=== PATIENT | female | born 1980 | race Caucasian/White ===

== ENCOUNTER 2018-04-12 16:58 | Emergency (ER) | payer BC ==
[~2018-04-12] VITALS: Ht 157.5 cm; Wt 136.1 kg
--- NOTE | ~2018-04-12 | EKG ---
[address] [address] ELECTROCARDIOGRAM REPORT Name: JG MALDONADO Holli Room #: [facility]#: [id number] Admission: 04/12/18 Attend Phys: Discharge: 04/12/18 Date of : 82 Report #: [id number] THIS REPORT FOR: //name// [facility] ED Test Date: 2018-04-12 Test Time: 17:24:14 Pat Name: JG MALDONADO Department: Room: Gender: F Database Coordinator: domenico mueller : 1980 Requested By: Tori Alan Order Number: [id number] MD: Cameron Morrell Measurements Intervals [place] Rate: 87 P: 77 RI: 155 QRS: 10 QRSD: 85 T: 33 QT: 363 QTc: 437 Interpretive Statements Sinus rhythm Normal tracing No previous ECG available for comparison Electronically Signed On 04-13-2018 8:41:27 FILTROSE CRUSHER by Cameron Morrell [email or web address] <ELECTRONICALLY SIGNED> By: Cameron Morrell MD, MERGED WITH [facility] 04/13/18 0841 1724 1724 Cameron Morrell MD, FACC /EPI
[~2018-04-12 16:58] MED LIST: IBUPROFEN 600600 M1; IRON325; TUCKS1 EAC1
[2018-04-12 17:36] LABS: ABSOLUTE NEUTROPHILS 6.5 thou/uL (1.4-8.2); BASOPHILS 0.4 % (0.0-2.0); EOSINOPHILS 0.5 % (0.0-3.0); HEMATOCRIT 41.7 % (37.0-47.0); HEMOGLOBIN 13.8 gm/dL (12.0-15.0); LYMPHOCYTES 19.2 % (24.0-44.0); MCH 26.4 pg (26.0-34.0); MCHC 33.1 g/dL (28.0-37.0); MCV 79.9 fL (80.0-100.0); MONOCYTES 6.1 % (1.0-8.0); PLATELET COUNT 336 thou/uL (150-400); POLYS 73.8 % (36.0-66.0); RBC 5.22 mil/uL (4.20-5.00); RDW 17.4 % (10.5-14.5); WBC 8.7 thou/uL (4.0-11.0)
[2018-04-12 17:43] LABS: ANION GAP 12 mmol/L (7-16); BUN 10 mg/dL (7-18); CALCIUM 9.2 mg/dL (8.5-10.1); CHLORIDE 103 mmol/L (98-107); CO2 22 mmol/L (21-32); CREATININE 0.8 mg/dL (0.6-1.0); GLUCOSE 101 mg/dL (74-106); POTASSIUM 3.7 mmol/L (3.5-5.1); SODIUM 137 mmol/L (136-145)
[2018-04-12 17:52] LABS: TROPONIN-I <0.06 ng/mL (<0.06)
[2018-04-12] MEDS ORDERED: FLONASE 0.05%50 MCG NASAL (18:35)
[2018-04-12 18:56] VITALS: BP 148/96
== END 2018-04-12 18:57 | disposition home or self-care (01) ==
LOC: ER 16:58
PROVIDERS: Physician Assistant
DX: R07.89 Other chest pain (principal); R51 Headache; Z91.040 Latex allergy status

== ENCOUNTER 2018-10-08 11:13 | Emergency (ER) | payer BC ==
[~2018-10-08] VITALS: Ht 162.6 cm; Wt 95.3 kg
[~2018-10-08 11:13] MED LIST changes: +FLONASE 0.05%50 MCG NASAL
[2018-10-08 11:50] LABS: ABSOLUTE NEUTROPHILS 5.2 thou/uL (1.4-8.2); BASOPHILS 0.3 % (0.0-2.0); EOSINOPHILS 1.4 % (0.0-3.0); HEMATOCRIT 36.9 % (37.0-47.0); MCH 25.7 pg (26.0-34.0); MCHC 32.5 g/dL (28.0-37.0); MCV 79.3 fL (80.0-100.0); MONOCYTES 7.4 % (1.0-8.0); PLATELET COUNT 315 thou/uL (150-400); POLYS 70.9 % (36.0-66.0); RBC 4.66 mil/uL (4.20-5.00); RDW 17.3 % (10.5-14.5); WBC 7.4 thou/uL (4.0-11.0)
[2018-10-08 11:59] LABS: ANION GAP 10 mmol/L (7-16); BUN 9 mg/dL (7-18); CALCIUM 8.8 mg/dL (8.5-10.1); CHLORIDE 105 mmol/L (98-107); CO2 25 mmol/L (21-32); CREATININE 0.8 mg/dL (0.6-1.0); GLUCOSE 102 mg/dL (74-106); POTASSIUM 3.2 mmol/L (3.5-5.1); SODIUM 140 mmol/L (136-145)
[2018-10-08 12:09] LABS: MAGNESIUM 1.8 mg/dL (1.8-2.4); TROPONIN-I <0.06 ng/mL (<0.06)
[2018-10-08 12:37] VITALS: BP 139/82
--- NOTE | 2018-10-09 07:32 | EKG ---
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1980 Requested By: Gasper Bustamante Order Number: [id number] MD: Cameron Morrell Measurements Intervals [place] Rate: 86 P: 74 RI: 149 QRS: 9 QRSD: 89 T: 36 QT: 379 QTc: 454 Interpretive Statements Sinus rhythm No significant abnormality Compared to ECG 04/12/2018 17:24:14 No significant changes Electronically Signed On 10-09-2018 7:32:41 CDT by Cameron Morrell [email or web address] ��������������������������������������������� <ELECTRONICALLY SIGNED> ���������������������������������������� By: Cameron Morrell MD, [facility] ��������������������������������������������� 10/09/18 0732 1118 1118 Cameron Morrell MD, FACC /EPI
== END 2018-10-08 12:37 | disposition home or self-care (01) ==
LOC: ER 11:13
PROVIDERS: Emergency Medicine
DX: R07.2 Precordial pain (principal); Z91.040 Latex allergy status

== ENCOUNTER 2019-02-09 09:39 | Emergency (ER) | payer BC ==
[~2019-02-09] VITALS: Ht 157.5 cm; Wt 130.2 kg
[2019-02-09 09:55] LABS: URINE BILIRUBIN NEGATIVE (Negative); URINE BLOOD 3+ (Negative); URINE CLARITY CLEAR; URINE COLOR YELLOW; URINE GLUCOSE-RANDOM* NEGATIVE (Negative); URINE KETONES 1+ (Negative); URINE NITRITE-REFLEX NEGATIVE (Negative); URINE PROTEIN (DIPSTICK) TRACE (Negative); URINE UROBILINOGEN 0.2 E.U./dl (0.2-1.0)
[2019-02-09 09:56] LABS: URINE LEUKOCYTES-REFLEX 1+ (Negative)
[2019-02-09 10:06] LABS: SQUAMOUS >10 Many /LPF (0-3)
[2019-02-09 10:08] LABS: CASTS None Seen /LPF (None Seen); CRYSTALS None Seen /LPF (None Seen); URINE RBC 0-2 Rare /HPF (0-2); URINE WBC-REFLEX 6-15 Few /HPF (0-5)
[2019-02-09 10:11] LABS: BACTERIA-REFLEX >30 Many /HPF (None Seen)
[2019-02-09 10:21] LABS: ABSOLUTE NEUTROPHILS 7.9 thou/uL (1.4-8.2); BASOPHILS 0.4 % (0.0-2.0); EOSINOPHILS 0.2 % (0.0-3.0); HEMOGLOBIN 11.1 gm/dL (12.0-15.0); LYMPHOCYTES 8.3 % (24.0-44.0); MCH 26.6 pg (26.0-34.0); MCHC 32.6 g/dL (28.0-37.0); MCV 81.6 fL (80.0-100.0); MONOCYTES 6.7 % (1.0-8.0); PLATELET COUNT 284 thou/uL (150-400); POLYS 84.4 % (36.0-66.0); RBC 4.16 mil/uL (4.20-5.00); RDW 17.8 % (10.5-14.5); WBC 9.3 thou/uL (4.0-11.0)
[2019-02-09 10:34] LABS: CALCIUM 8.8 mg/dL (8.5-10.1); POTASSIUM 3.4 mmol/L (3.5-5.1)
[2019-02-09 10:41] LABS: TOTAL BILIRUBIN 0.4 mg/dL (<0.1-1.0); TOTAL PROTEIN 7.4 g/dL (6.4-8.2)
[2019-02-09 11:36] LABS: URINE BILIRUBIN NEGATIVE (Negative); URINE BLOOD 3+ (Negative); URINE CLARITY CLEAR; URINE COLOR YELLOW; URINE GLUCOSE-RANDOM* NEGATIVE (Negative); URINE KETONES 2+ (Negative); URINE LEUKOCYTES-REFLEX NEGATIVE (Negative); URINE NITRITE-REFLEX NEGATIVE (Negative); URINE PROTEIN (DIPSTICK) TRACE (Negative); URINE SPECIFIC GRAVITY 1.025 (1.005-1.035); URINE UROBILINOGEN 0.2 E.U./dl (0.2-1.0)
[2019-02-09 11:50] LABS: SQUAMOUS 4-10 Moderate /LPF (0-3)
[2019-02-09 11:51] LABS: BACTERIA-REFLEX None Seen /HPF (None Seen); CASTS None Seen /LPF (None Seen); CRYSTALS None Seen /LPF (None Seen); URINE RBC 3-10 Few /HPF (0-2); URINE WBC-REFLEX 0-5 Rare /HPF (0-5)
[2019-02-09] MEDS ORDERED: NORCO 5-325 TA1 EAC1 PO (12:01)
[2019-02-09 13:13] VITALS: BP 123/70
== END 2019-02-09 13:14 | disposition home or self-care (01) ==
LOC: ER 09:39
PROVIDERS: Emergency Medicine
DX: N20.0 Calculus of kidney (principal); R11.10 Vomiting, unspecified; Z91.040 Latex allergy status

== ENCOUNTER 2019-05-23 10:23 | Inpatient (IN) | payer BC ==
[~2019-05-23] VITALS: Ht 157.5 cm; Wt 130.2 kg
--- NOTE | ~2019-05-23 | EKG ---
[facility] [place] [address] ELECTROCARDIOGRAM REPORT Name: JG MALDONADO Room #: 208-P ADM IN M.R.#: [id number] Admission: 05/23/19 Attend Phys: Alex Cedeno MD Discharge: Date of : 82 Report #: [id number] THIS REPORT FOR: cc: NO FAMILY PHYSICIAN or PCP FAM - No family physician/PCP Nyla Redmond MD ~ THIS REPORT FOR: //name// [facility] Test Date: 2019-05-24 Test Time: 08:09:05 Pat Name: JG MALDONADO Department: Room: 208 P Gender: F Set Key Driver: SHANELLE : 1980 Requested By: Alex Cedeno Order Number: [id number] MD: Measurements Intervals [place] Rate: 139 P: 53 MS: 121 QRS: 11 QRSD: 89 T: 13 QT: 294 QTc: 447 Interpretive Statements Sinus tachycardia Low voltage, precordial leads Compared to ECG 05/23/2019 10:38:16 No significant changes [email or web address] By: 0809 8 Epiphany Epiphany, /EPI
--- NOTE | ~2019-05-23 | EKG ---
[facility] [place] [address] ELECTROCARDIOGRAM REPORT Name: JG MALDONADO Room #: [facility].#: [id number] Admission: Attend Phys: Discharge: Date of : 82 Report #: [id number] THIS REPORT FOR: cc: GREGG - Anjana family physician/PCP GREGG - Anjana family physician/PCP Nyla Redmond MD ~ THIS REPORT FOR: //name// [facility] ED Test Date: 2019-05-23 Test Time: 10:38:16 Pat Name: JG MALDONADO Department: Room: Gender: F Mobile Unit Assistant: SARY : 1980 Requested By: Bob Titus Order Number: [id number] MD: Measurements Intervals [place] Rate: 133 P: 82 NM: 148 QRS: 35 QRSD: 78 T: -32 QT: 332 QTc: 494 Interpretive Statements Sinus tachycardia Probable left atrial enlargement Borderline low voltage, extremity leads Borderline prolonged QT interval Baseline wander in lead(s) III,aVL,aVF,V2 Compared to ECG 10/08/2018 11:18:34 Sinus rhythm no longer present [email or web address] By: 1038 [facility] Epiphany Epiphany, /EPI
[~2019-05-23 10:23] MED LIST changes: +NORCO 5-325 TA1 EAC1 PO
[2019-05-23 10:24] VITALS: BP 143/92
[2019-05-23] MEDS ORDERED: BLISOVI 24 FE1 EACH PO (11:11)
[2019-05-23] MEDS ORDERED: PREDNISONE 20 M20 MG PO (12:44)
[2019-05-23] MEDS ORDERED: ULTRAM 50MG TAB50 MG PO (12:44)
[2019-05-23 13:12] LABS: ABSOLUTE NEUTROPHILS 13.4 thou/uL (1.4-8.2); BASOPHILS 0.2 % (0.0-2.0); EOSINOPHILS 0.1 % (0.0-3.0); HEMATOCRIT 35.7 % (37.0-47.0); HEMOGLOBIN 11.4 gm/dL (12.0-15.0); LYMPHOCYTES 1.5 % (24.0-44.0); MCH 26.3 pg (26.0-34.0); MCHC 31.9 g/dL (28.0-37.0); MCV 82.4 fL (80.0-100.0); MONOCYTES 2.2 % (1.0-8.0); PLATELET COUNT 316 thou/uL (150-400); RBC 4.33 mil/uL (4.20-5.00); RDW 17.5 % (10.5-14.5); WBC 13.9 thou/uL (4.0-11.0)
[2019-05-23 13:15] LABS: CALCIUM 8.5 mg/dL (8.5-10.1); CREATININE 1.4 mg/dL (0.6-1.0)
[2019-05-23 13:18] LABS: POTASSIUM 2.9 mmol/L (3.5-5.1)
[2019-05-23 13:21] LABS: ALBUMIN 2.7 g/dL (3.4-5.0); TOTAL BILIRUBIN 0.8 mg/dL (<0.1-1.0); TOTAL PROTEIN 7.5 g/dL (6.4-8.2)
[2019-05-23 16:24] VITALS: BP 137/87
[2019-05-23 16:46] VITALS: BP 137/87
[2019-05-23 17:10] VITALS: BP 128/79
--- NOTE | 2019-05-23 18:19 | NUR ---
PT. ARRIVED AROUND 1600; AXO4; ABLE TO TRANSFER FROM WHEELCHAIR TO BED BY HERSELF; C/O PAIN 8/10 OVER CHEST; ST. ACETAMINOPHEN GIVEN IN THE ER DID NOT HELP; NO PRN MEDICATION ORDER; PHYSICIAN NOTIFIED; ORDERS RECEIVED; EDUCATED ABOUT FALL PREVENTIONS; ADMISSION PERFORMED; ST. UNDERSTANDING; HR ON THE 130s ON THE MONITOR; PHYSICIAN AWARE; NO ELEVATED TEMPERATURE; ASSESSMENT CHARGED; FOLLOWING POC; WILL PASS ON REPORT;
[2019-05-23 20:19] VITALS: BP 153/80
--- NOTE | 2019-05-24 04:01 | NUR ---
ASSESSMENT: PT REMAIN ALERT AND ORIENT TIMES FOUR. UP AD JARED, ST PER MONITOR. HR 120-130'S WITH AMBULATIONS. C/O NOT FEELING LIKE SHE WAS GETTING ENOUGH AIR, SATS 100% ON RA. 1 LITERS OF OXYGEN GIVEN FOR COMFORT. DENIES CP. POTASSIUM TRENDING UPWARDS. ST PER MONITOR. PERSISTANT TACHYCARDIA AND TACHYPNEA. SLOW PROGRESS, WILL CONTINUE TO MONITOR.
[2019-05-24 05:12] VITALS: BP 143/103
[2019-05-24 06:41] LABS: HEMATOCRIT 32.3 % (37.0-47.0); HEMOGLOBIN 10.2 gm/dL (12.0-15.0); MCH 25.8 pg (26.0-34.0); MCHC 31.7 g/dL (28.0-37.0); MCV 81.6 fL (80.0-100.0); RBC 3.96 mil/uL (4.20-5.00); WBC 13.8 thou/uL (4.0-11.0)
[2019-05-24 07:11] LABS: CALCIUM 7.4 mg/dL (8.5-10.1); CREATININE 1.2 mg/dL (0.6-1.0); POTASSIUM 3.9 mmol/L (3.5-5.1)
[2019-05-24 08:00] VITALS: BP 154/86
[2019-05-24] MEDS ORDERED: AUGMENTIN 500-1 EACH PO (12:13)
--- NOTE | 2019-05-24 13:10 | NUR ---
RECEIVED PT'S CARE AROUND 0700; PT. IN ROOM; AOX4; C/O PAIN OVER CHEST AREA; 08/31; ST. DECREASE PAIN FROM YESTERDAY 05/23/2019; REQUESTED PRN PAIN MEDICATION LATER ON THE DAY; ST. UNDERSTANDING; HR ON THE 150s; PHYSICIAN NOTIFIED; NO NEW ORDERS; CONSULT CARDIOLIST ON PLACE; ETHYLBENZENE OXIDIZER MEDICAL DETAILIST ROUNDING; AROUND NOON D/C ORDERS ON PLACE; PT. NOTIFIED; SCHEDULED IV ANTIBIOTIC GIVEN; HR ON THE 148s; NO C/O PALPITATIONS OR DIZZINESS; ASSESSMENT CHARGED; FOLLOWING POC; WORKING ON D/C ORDERS;
[2019-05-24 13:14] VITALS: BP 154/86
== END 2019-05-24 14:30 | disposition home or self-care (01) | DRG 153 ==
LOC: ER 10:23 → EROBS 15:47 → 2N 15:47 → ENTRNSPT 05-24 14:18 → EDTRNSPTSTS 05-24 14:24 → 2N 05-24 14:30
PROVIDERS: Physician Assistant; ADMIT Hospitalist
DX: J03.00 Acute streptococcal tonsillitis, unspecified (principal); N17.9 Acute kidney failure, unspecified; R65.10 Systemic inflammatory response syndrome (SIRS) of non-infectious origin without acute organ dysfunction; E87.6 Hypokalemia; Z87.442 Personal history of urinary calculi; Z91.040 Latex allergy status; Z23 Encounter for immunization
CPT/HCPCS: 10081